=== PATIENT | male | born 1960 | race Hispanic/Latino ===

== ENCOUNTER → 2018-07-12 | Outpatient (CLI) | payer OTHER ==
--- NOTE | 2018-07-12 16:05 | Diagnostic Imaging Report ---
Exam: Right shoulder 2 views History: Pain Comparison: None. Findings: No fracture or malalignment. Glenohumeral joint intact. Mild acromioclavicular arthrosis. No abnormal soft tissue calcification or soft tissue defect. Impression: No acute osseous abnormality Signed by: Dr. Antonio Jules M.D. on 07/12/2018 4:02 PM
== END ==
LOC: RAD 15:00
PROVIDERS: ATTEND Family Medicine
DX: M25.511 Pain in right shoulder (principal)

== ENCOUNTER 2018-12-06 15:55 | Outpatient (RCR) | payer OTHER | END 2018-12-10 | LOC: OT 15:55 | PROVIDERS: ATTEND Specialist | DX: M75.101 Unspecified rotator cuff tear or rupture of right shoulder, not specified as traumatic (principal) ==

== ENCOUNTER 2018-12-21 15:59 | Outpatient (RCR) | payer OTHER | END 2019-01-10 | LOC: OT 15:59 | PROVIDERS: ATTEND Specialist | DX: M75.81 Other shoulder lesions, right shoulder (principal); M77.8 Other enthesopathies, not elsewhere classified ==

== ENCOUNTER → 2022-03-15 | Outpatient (CLI) | payer BC | LOC: MRI 09:16 | PROVIDERS: ATTEND Specialist | DX: S83.222A Peripheral tear of medial meniscus, current injury, left knee, initial encounter (principal) ==

== ENCOUNTER 2022-04-07 16:53 | Outpatient (RCR) | payer BC | END 2022-04-12 | LOC: PT 16:53 | PROVIDERS: ATTEND Specialist | DX: M17.0 Bilateral primary osteoarthritis of knee (principal); M62.81 Muscle weakness (generalized); M25.562 Pain in left knee; M25.561 Pain in right knee ==

== ENCOUNTER 2022-04-26 14:49 | Outpatient (RCR) | payer BC | END 2022-05-12 | LOC: PT 14:49 | PROVIDERS: ATTEND Specialist | DX: M17.0 Bilateral primary osteoarthritis of knee (principal) ==

== ENCOUNTER → 2024-10-30 | Outpatient (REF) | payer OTHER ==
[~2024-10-30] MED LIST: B-121000 MC2; BASAGLAR K100 UNIT/1; FUROSEMIDE40 MG PO; HYDROCHLOROTHIA25 MG PO; HYDROXYZINE PA100 MG PO; LOSARTAN POTAS100 MG PO; NEURONTIN300 MG PO; NIFEDIPINE ER30 M1 PO; POTASSIUM CHLO20 ME2 PO; POTASSIUM CHLO20 MEQ; PRAVASTATIN SOD40 MG PO; TENORMIN100 MG PO; TERAZOSIN HCL5 MG PO
== END ==
LOC: MRI 12:35
PROVIDERS: ATTEND Student in an Organized Health Care Education/Training Program
DX: M54.12 Radiculopathy, cervical region (principal); S32.010S Wedge compression fracture of first lumbar vertebra, sequela; S32.020S Wedge compression fracture of second lumbar vertebra, sequela; S32.030S Wedge compression fracture of third lumbar vertebra, sequela; M25.562 Pain in left knee; M25.561 Pain in right knee
CPT/HCPCS: 72141; 72148

== ENCOUNTER → 2025-01-09 | Day surgery (SDC) | payer BC, OTHER ==
[2025-01-02 13:12] LABS: BASOPHILS % 0.2 % (0.0-1.0); EOSINOPHILS % 1.4 % (0.0-6.0); LYMPHOCYTES % 47.7 % (18.0-39.1); MONOCYTES % 9.0 % (4.4-11.3); NEUTROPHILS % 41.7 % (38.7-80.0); RED CELL DISTRIBUTION WIDTH 13.3 % (11.7-14.4)
[2025-01-02 13:50] LABS: EST GLOMERULAR FILTRATION RATE 99.0 ML/MIN (>=60)
[~2025-01-09] MED LIST changes: +FENTANYL CITRATE/PF 100MCG/2 ML INJ ONE; +GLYCOPYRROLATE INJ 0.2 MG/ML VIAL ONE; +HYDRALAZINE HC100 MG PO; +KETAMINE HCL INJ 50 MG/ML 10 ML VIAL ONE; +MIDAZOLAM HCL 2 MG/2 ML VIAL ONE; +PROPOFOL IV EMULSION 10 MG/ML 20 ML VIAL ONE; +SUCCINYLCHOLINE CHLORIDE 20 MG/ML 10ML VIAL ONE; +TRULICITY1.5 MG/0.5 SC
[2025-01-09] MEDS: LACTATED RINGER'S 1,000 ML ONE (06:15)
[2025-01-09 07:49] VITALS: TEMP 97.9
[2025-01-09 08:20] VITALS: BP 139/80; PULSE 67; RESP 16; O2SAT 95
== END | disposition home or self-care (01) ==
LOC: OR 05:21
PROVIDERS: ATTEND Student in an Organized Health Care Education/Training Program
DX: M80.08XA Age-related osteoporosis with current pathological fracture, vertebra(e), initial encounter for fracture (principal); E11.9 Type 2 diabetes mellitus without complications; I10 Essential (primary) hypertension; M17.12 Unilateral primary osteoarthritis, left knee; G89.4 Chronic pain syndrome; G47.33 Obstructive sleep apnea (adult) (pediatric); E66.9 Obesity, unspecified; Z79.85 Long-term (current) use of injectable non-insulin antidiabetic drugs; Z79.4 Long term (current) use of insulin; Z01.810 Encounter for preprocedural cardiovascular examination; Z01.812 Encounter for preprocedural laboratory examination
CPT/HCPCS: 22514; 36415 ×2; 80048; 82948; 85025; 93005; C1713; J0330; J2250; J2704; J3010; J7121; 77003